=== PATIENT | female | born 1950 | race Caucasian/White ===

== ENCOUNTER 2017-11-04 08:52 | Emergency (ER) | payer OTHER ==
[~2017-11-04] VITALS: Ht 152.4 cm; Wt 81.1 kg
[2017-11-04 09:34] LABS: HEMATOCRIT 38.4 % (36.0-46.0); HEMOGLOBIN 13.3 G/DL (11.9-15.5); MCH 30.2 PG (29.0-34.0); MCHC 34.6 G/DL (30.0-36.0); MCV 87.3 FL (83-99); PLATELET COUNT 257 K/uL (156-360); RBC DIS.WIDTH-CV 12.3 % (11.8-14.6); RBC DIS.WIDTH-SD 39.2 % (39-53)
[2017-11-04 09:44] LABS: CHLORIDE 107 mEq/L (99-109); POTASSIUM 4.5 mEq/L (3.7-5.4); SODIUM 142 mEq/L (136-147)
[2017-11-04 09:45] LABS: GLUCOSE 103 mg/dL (70-99)
[2017-11-04 09:49] LABS: CREATININE 0.9 mg/dL (0.6-1.3); GFR ESTIMATE (CALCULATED) > 59 mL/min/
[2017-11-04 09:50] LABS: UREA NITROGEN (BUN) 20 mg/dL (9-23)
[2017-11-04 09:56] LABS: TROP-I INTERPRETATION NEGATIVE; TROPONIN-I < 0.01 ng/mL (0.0-0.30)
[2017-11-04 14:41] VITALS: BP 167/78
== END 2017-11-04 14:42 | disposition home or self-care (01) ==
LOC: EME 08:52
DX: R07.9 Chest pain, unspecified (principal); R06.02 Shortness of breath; M25.512 Pain in left shoulder; R41.0 Disorientation, unspecified; R53.1 Weakness
CPT/HCPCS: 71046; 80048; 84484; 85027; 93005; 99281; 99285